=== PATIENT | male | born 1985 | race Caucasian/White ===

== ENCOUNTER 2023-12-09 18:51 | Emergency (ER) | payer SELFPAY ==
[2023-12-09 19:08] VITALS: BP 128/90; PULSE 128; RESP 19; TEMP 37.1; O2SAT 99; BMI 30.4
--- NOTE | 2023-12-09 20:40 | ED_ITS ---
HPI - Recheck/Abnormal Lab/Rx General Chief Complaint: Recheck/Abnormal Lab/Rx Stated Complaint: poss parasites Time Seen by Provider: 12/09/23 20:03 Source: patient Mode of arrival: Ambulatory History of Present Illness HPI narrative: Patient is a 38-year-old male who is here for evaluation of a concern for possible exposure to parasites. He stated that he thinks that he was exposed to something while at his work. He states they were ?glands? in his neck that were enlarged. He also states he is ?track? still on his right hand between his eyes that could potentially be where they have entered his body. He denies any change in stool. No urinary symptoms. No recent travel. He did take a medication last evening after he started to have the symptoms and now all of his symptoms have resolved. Related Data Allergies Allergy/AdvReac Type Severity Reaction Status Date / Time albuterol Allergy Difficulty Verified 12/09/23 19:08 Breathing Review of Systems Review of Systems ROS Unobtainable: All systems reviewed & are unremarkable except as noted in HPI and below Patient History Social History Smoking Status: Current some day smoker Smoking Status: Current some day smoker tobacco type: vaping alcohol intake frequency: holidays/special occasions only Substance Use Type: marijuana Exam Initial Vital Signs Initial Vital Signs: Vital Signs Temperature 98.8 F 12/09/23 19:08 Pulse Rate 128 H 12/09/23 19:08 Respiratory Rate 19 12/09/23 19:08 Blood Pressure 128/90 12/09/23 19:08 Pulse Oximetry 99 12/09/23 19:08 Oxygen Delivery Method Room Air 12/09/23 19:08 [facility] Mouth: oropharynx normal and moist mucous membranes Resp Effort & Inspection: normal respiratory effort Cardio Rate: regular rate Skin General: no rashes or lesions noted Course Vital Signs Vital signs: Vital Signs - 8 hr 12/09/23 20:54 Temperature 98.6 F Pulse Rate 104 H Respiratory Rate 16 Blood Pressure 118/74 Pulse Oximetry 98 Oxygen Delivery Method Room Air MDM - Recheck/Abnormal Lab/Rx MDM Narrative Medical decision making narrative: Patient has no external signs of any sort of parasitic infection. He was low risk for this. The areas on his skin that he was concerned about are unremarkable they exam here today. Tried to reassure the patient. No further workup required here in the emergency department. He can follow-up with his primary doctor. Discharge Plan Departure Patient Disposition: Home Clinical Impression: Fatigue Activity Restrictions/Additional Instructions: Continue to take all of your medications as directed. Keep your scheduled appointment that you have with your primary doctor to discuss any continued symptoms that you maybe having. Return to the emergency department for new symptoms. Stand Alone Forms: Patient Portal/API
[2023-12-09 20:54] VITALS: BP 118/74; PULSE 104; RESP 16; TEMP 37; O2SAT 98
--- NOTE | 2023-12-09 21:00 | PC.NURSE ---
late entry: Prior to DC, Dr Ruiz was informed of persistent tachycardia HR 104-130. OK to DC per Dr Ruiz.
== END 2023-12-09 20:55 | disposition home or self-care (01) ==
PROVIDERS: Emergency Provider Emergency Medicine
DX: R53.83 Other fatigue (principal)
CPT/HCPCS: 99281